=== PATIENT | male | born 1990 | race Caucasian/White ===

== ENCOUNTER 2020-08-25 13:42 | Emergency (ER) | payer OTHER, SELFPAY ==
[2020-08-25] VITALS (16 sets, daily range): BP systolic 122–151; BP diastolic 75–98; PULSE 59–109; RESP 9–19; TEMP 36.5; O2SAT 97–100
--- NOTE | 2020-08-25 13:45 | RT.EKG_ITS ---
APPROVED REPORT Exam: Resting ECG Patient Location: E HR:79 bpm ECG Measurements Heart Rate 79 AXIS TN 133 P 38 QRSd 86 QRS 70 QT 362 T 34 QTc 416 Conclusion Sinus rhythm...normal P axis, V-rate 60- 99
--- NOTE | 2020-08-25 13:52 | W.ED.GENAD ---
Discharge Plan Disposition Patient Disposition: HOME Condition: Stable Discharge Details Clinical Impression: Palpitations Primary Care Provider: Kandi,Local ED Provider: Gilbert Zuleta Home Meds and New Rx's Prescriptions: No Action No Known Home Meds RF: 0 Discharge Instructions Instructions: Heart Palpitations (ED) Additional Instructions: your blood work and ecg today did not show any concerning findings follow up with your primary care provider this week if you feel more ill, shortness of breath or worsening chest pain return to the emergency department Medical Decision Making 30 yo male with no chronic medical problems who denies smoking or drug use and drinks occasionally comes in with chief complaint of feeling tired when he woke up this morning and intermittent fluttering sensation in the chest. No prior cardiac history per the patient. 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 Denies n/v, diaphoresis, and denies any pain or pressure in the chest just states intermittently feels like there is a butterfly in his chest. He is stable on arrival speaking in full sentences, no leg swelling or calf tenderness or jvd, clear lungs and no murmurs and is sinus on the monitor. Could have pvc's less likely aflutter or afib. Given lack of chest pain or dyspnea doubt acs, heart score is 1, will send troponin. WElls low and perc negative so doubt PE. no tearing back pain and normal vascular exam so doubt dissection labs unremarkable and he remains stable. Given no symptoms here and no presyncope symptoms feel he is stable for d/c. Did advise to f/u with his pcp this week with return precautions Differential Diagnosis Differential Diagnosis: pvc's, afib, aflutter ECG Data Attestation: I personally reviewed and interpreted this ECG (s) as follows: Prior ECG tracings: not available for review Interpretation: sinus rhythm, rate of 79, pr 133, no acute st t wave ischemic findings HPI General Mode of arrival: ambulatory. Date/Time Provider Initiated Documentation: 08/25/20 13:47. Limitations to Documentation: no limitations. Information obtained by: patient. History of Present Illness 30 year old M presents to the emergency department with the chief complaint of fluttering in chest, described as mild, Patient reports no radiation. Patient started experiencing this hour(s) (5) and it has been intermittent. No relieving factors improve symptom(s), No exacerbating factors reported . Patient notes no other symptoms.. Related Data Home Medications Medication Instructions Recorded Confirmed Unknown [No Known Home Meds] 08/25/20 08/25/20 Allergies Allergy/AdvReac Type Severity Reaction Status Date / Time Latex, Natural Rubber AdvReac Mild Unverified 08/25/20 13:52 Review of Systems All systems reviewed & are unremarkable except as noted in HPI and below Constitutional Constitutional: Denies chills, Denies fever(s) and Denies weakness Cardiovascular Cardiovascular: Denies dyspnea Respiratory Respiratory: Denies cough and Denies dyspnea Gastrointestinal Gastrointestinal: Denies abdominal pain, Denies nausea and Denies vomiting Musculoskeletal Musculoskeletal: Denies joint swelling Neurologic Neurologic: Denies weakness Psychiatric Psychiatric: Denies depression [facility] Social History Smoking risk assessment performed?: No Alcohol Intake: current Drug use: Never Substance use type: does not use Details: quit smoking cigarettes Do you feel safe at home: Yes Do you feel safe in your relationship?: Yes Exam Const General: no acute distress Orientation: alert HENMT Head: normal to inspection Ears: external ears normal General nose exam: external nose normal Mouth: moist mucous membranes Eyes General: appearance normal, both eyes and all related structures Neck Neck: normal visual inspection Chest Chest: normal inspection of the chest and no crepitus Resp Effort & Inspection: normal respiratory effort and able to speak in complete sentences Cardio Rate: regular rate Skin General skin exam: no rashes or lesions noted Neuro General: patient alert and patient oriented x3 Extrem General: normal to inspection Psych Mental Status: mental status grossly normal
[2020-08-25 14:12] LABS: Abs Immature Grans 0.02 10^3/uL (0.0-0.06); Absolute Basophil Count 0.05 10^3/uL (0.0-0.2); Absolute Eosinophil Count 0.25 10^3/uL (0.0-0.7); Absolute Lymphocyte Count 2.02 10^3/uL (1.2-3.4); Absolute Monocyte Count 0.57 10^3/uL (0.1-0.8); Absolute Neutrophil Count 3.24 10^3/uL (1.2-6.7); Basophils % 0.8; Eosinophils % 4.1; HCT 45.5 % (40.0-50.0); HGB 16.1 g/dL (13.5-17.5); Immature Grans % 0.3; Lymphocytes % 32.8; MCH 31.2 pg (27.0-33.0); MCHC 35.4 % (32.0-36.0); MCV 88.2 fL (80-95); MPV 9.2 fL (8.0-11.0); Monocytes % 9.3; Neutrophils % 52.7; Nucleated RBC 0 %; Platelet Count 287 10^3/uL (130-400); RBC 5.16 10^6/uL (4.36-5.78); WBC 6.15 10^3/uL (4.4-10.8)
[2020-08-25 15:07] LABS: ALT 34 U/L (16-63); AST 14 U/L (15-37); Albumin 4.4 g/dL (3.4-5.0); Alkaline Phosphatase 50 U/L (46-116); Anion Gap 9.6 mmol/L (3-11); BUN 13 mg/dL (7-18); Bilirubin, Total 0.6 mg/dL (0.2-1.0); CO2 27.4 mmol/L (21.0-32.0); Calcium 9.2 mg/dL (8.5-10.1); Chloride 102 mmol/L (98-107); Glucose 96 mg/dL (74-106); Sodium 139 mmol/L (136-145); Total Protein 7.7 g/dL (6.4-8.2)
[2020-08-25 15:08] LABS: Troponin I < 0.05 ng/mL (<0.06)
== END 2020-08-25 15:36 | disposition home or self-care (01) ==
PROVIDERS: Emergency Provider Emergency Medicine
DX: R00.2 Palpitations (principal)
CPT/HCPCS: 36415; 80053; 93005; 99283; 84484; 85025; 93010